=== PATIENT | male | born 1970 | race Caucasian/White ===

== ENCOUNTER 2017-12-18 09:44 | Day surgery (SDC) | payer BC ==
[~2017-12-18] VITALS: Ht 180.3 cm; Wt 93.0 kg
[2017-12-18] MEDS ORDERED: BUPIVACAINE-EPI 0.5%-1:200000 50 ML VIAL. ONE (10:08)
[2017-12-18] MEDS ORDERED: IV RINGERS,LACTATED 1000ML 1,000 ML IV SCH (10:16)
[2017-12-18] MEDS ORDERED: OMEP20TA63 PO (10:20)
[2017-12-18] MEDS ORDERED: ACET325T9 PO (10:20)
[2017-12-18] MEDS ORDERED: CETI10TA22 PO (10:20)
[2017-12-18] MEDS ORDERED: fentaNYL PF VIAL 100 MCG/2 ML VIAL IV PRN (10:30)
[2017-12-18] MEDS ORDERED: PROCHLORPERAZINE 10 MG/2 ML VIAL. IV PRN (10:30)
[2017-12-18] MEDS ORDERED: HYDROmorphone 2 MG/ML VIAL IV PRN (10:30)
[2017-12-18] MEDS ORDERED: LIDOCAINE 1% PF 2 ML VIAL. ID PRN (10:30)
[2017-12-18] MEDS ORDERED: MORPHINE SULFATE 2 MG/ML VIAL. IV PRN (10:30)
[2017-12-18] MEDS ORDERED: ONDANSETRON PF 4 MG/2 ML VIAL. IV PRN (10:30)
[2017-12-18] MEDS ORDERED: ceFAZolin 2GM PREMIX 2 GM/50 ML BAG IV ONE (11:00)
[2017-12-18] MEDS ORDERED: ROCURONIUM 100 MG/10 ML VIAL. ONE (11:03)
[2017-12-18] MEDS ORDERED: ONDANSETRON PF 4 MG/2 ML VIAL. ONE (11:03)
[2017-12-18] MEDS ORDERED: DEXAMETHASONE SOD PHOS 20 MG/5 ML VIAL. ONE (11:03)
[2017-12-18] MEDS ORDERED: PROPOFOL 20 ML IV ONE (11:03)
[2017-12-18] MEDS ORDERED: fentaNYL PF VIAL 100 MCG/2 ML VIAL ONE ×3 (11:04→13:04)
[2017-12-18] MEDS ORDERED: MIDAZOLAM HCL/PF 2 MG/2 ML VIAL. ONE (11:04)
[2017-12-18] MEDS ORDERED: SUCCINYLCHOLINE 200 MG/10 ML VIAL. ONE (11:25)
[2017-12-18] MEDS ORDERED: NEOSTIGMINE 10 MG/10 ML VIAL. ONE (11:46)
[2017-12-18] MEDS ORDERED: GLYCOPYRROLATE 1 MG/5 ML VIAL. ONE (11:48)
[2017-12-18] MEDS ORDERED: ePHEDrine PF IN SALINE 50 MG/5 ML DISP.SYRIN IV ONE (12:02)
[2017-12-18] MEDS ORDERED: SEVOFLURANE 61 TO 120 MINUTES. IH ONE (12:25)
--- NOTE | 2017-12-18 12:34 | PDOC ---
BRIEF OPERATIVE NOTE Date: Dec 18, 2017 Pre-Op Diagnosis incarcerated ventral incisional hernia Post-Op Diagnosis same, times three Procedure Performed primary repair Surgeon Hong Director Sports Shaylee S[facility] Anesthesia Type: General Blood Loss 10cc IV Fluid 1000cc Specimens Obtained incarcerated contents Findings incarcerated preperitoneal fat and omentum Complications none Operative Note Wk # [id number] ALEYDA FARRIS MD Dec 18, 2017 12:34
--- NOTE | 2017-12-18 12:48 | OP ---
DATE OF SURGERY: 12/18/2017 PREOPERATIVE DIAGNOSIS: Ventral incisional hernias, incarcerated. POSTOPERATIVE DIAGNOSIS: Ventral incisional hernias, incarcerated. PROCEDURE: Primary repair. SURGEON: Aleyda Farris MD. CHRISTIAN SCIENCE READER: FLAQUITA Miller. ANESTHESIA: General endotracheal. ESTIMATED BLOOD LOSS: 10 mL. INTRAVENOUS FLUID: 1 L. INDICATIONS: The patient is a 47-year-old with previous abdominal surgery, who now has pain and fullness to the left of his incision near the umbilicus. He is brought for repair. OPERATIVE FINDINGS: Along with the main hernia, which was easily palpable, 2 smaller ones were also encountered in the midline above DESCRIPTION OF PROCEDURE: The patient brought to the operating suite, given a general endotracheal anesthetic and the abdomen prepped and draped in usual sterile fashion. A 0.5% Marcaine with epinephrine was infiltrated around the old scar, was excised and dissection carried down to the anterior sheath. The main hernia was mobilized from the subcutaneous space. Contents were clamped, divided and ligated to allow reduction of the remaining omentum. Defect was closed with interrupted inverted [id number] 0 PDS stitches. Two smaller defects superior to the region 1 were identified. Incarcerated contents removed and defects repaired with 0 Vicryl. When hemostasis was present and a correct sponge count obtained, the wound was closed by approximating the subcutaneous tissue with 3-0 Vicryl. Skin closed with a subcuticular 4-0 Monocryl and Steri-Strips. Sterile dressing applied. Abdominal binder placed. The patient was awakened from his anesthetic and taken to the recovery room in satisfactory condition. ALEYDA FARRIS MD DR: OFELIA/nts JOB#: [id number] / [id number]
[2017-12-18] MEDS ORDERED: ALBUTEROL SULFATE 2.5 MG/3 ML NEBU. ONE (12:49)
[2017-12-18] MEDS: fentaNYL PF VIAL 100 MCG/2 ML VIAL IV PRN ×2 (13:20→13:27)
[2017-12-18] MEDS ORDERED: OXYC-327 PO (13:28)
[2017-12-18] MEDS ORDERED: DOCU-150 PO (13:29)
[2017-12-18] MEDS ORDERED: ALBUTEROL SULFATE 2.5 MG/3 ML NEBU. NEB ONE (13:45)
[2017-12-18] MEDS ORDERED: oxyCODONE/APAP 7.5/325 1 TAB TABLET PO ONE (13:45)
[2017-12-18 14:10] VITALS: BP 115/65
--- NOTE | 2017-12-19 17:09 | PATHOLOGY ---
[facility] Accession Number: [id number] . 01 Material submitted: . INCARCERATED HERNIA SAC CONTENTS . 01 Clinical history: . Hernia . 02 Diagnosis: Segments of focal mesothelial-lined fibromembranous and fibroadipose tissue, ventral incisional hernia repair: - Hernia sac showing focal reactive mesothelial hyperplasia and chronic inflammation. . (JPM:mml; 12/19/17) QL/12/19/2017 . 02 Electronically signed: . John Washburn MD, Pathologist NPI- [id number] . 01 Gross description: . The specimen is received in formalin, labeled "Sahil Yap, hernia sac incarcerated contents", are several irregular fragments of yellow lobulated soft tissue partially covered by a chavez-white membrane measuring 6.5 x 4.5 x 1.5 cm in aggregate. No discrete nodules or masses are identified. Senior Financial Consultant tissue is submitted in A1. ([facility]; 12/18/2017) [facility]S . 02 Pathologist provided ICD-10: K43.9 . 02 CPT . 423735 Specimen Comment: A courtesy copy of this report has been sent to Specimen Comment: [phone], . Specimen Comment: Report sent to and Specimen Comment: A duplicate report has been generated due to demographic updates. Performed at: 01 [facility] [address], [place] [id number] MD Miguel Smith MD Phone: [phone] Performed at: 02 [facility] [address], [place] [id number] MD John Washburn MD Phone: [phone]
== END 2017-12-18 14:48 | disposition home or self-care (01) ==
LOC: SURG 09:44
PROVIDERS: ATTEND Surgery
DX: K43.0 Incisional hernia with obstruction, without gangrene (principal); K21.9 Gastro-esophageal reflux disease without esophagitis; F17.210 Nicotine dependence, cigarettes, uncomplicated; Z79.899 Other long term (current) drug therapy; Z72.89 Other problems related to lifestyle; Z98.890 Other specified postprocedural states
CPT/HCPCS: 49561; 88302; 94640; A7015; J0330; J0690; J1100; J2250; J2405; J2704; J2710; J3010; J3490; J7120; J7613